=== PATIENT | male | born 1980 | race American Indian/Alaskan Native ===

== ENCOUNTER 2017-09-11 01:13 | Emergency (ER) | payer OTHER ==
[2017-09-11] MEDS ORDERED: TYLENOL ONE (01:45)
[2017-09-11] MEDS ORDERED: TYLENOL PO ONE (01:47)
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
[2017-09-11 05:43] VITALS: BP 124/84
== END 2017-09-11 05:43 | disposition home or self-care (01) ==
LOC: ED 01:13
DX: M54.5 Low back pain (principal); R51 Headache; F17.200 Nicotine dependence, unspecified, uncomplicated; F12.10 Cannabis abuse, uncomplicated; V43.52XA Car driver injured in collision with other type car in traffic accident, initial encounter; Y93.89 Activity, other specified; Y99.8 Other external cause status; Y92.410 Unspecified street and highway as the place of occurrence of the external cause
CPT/HCPCS: 99282